=== PATIENT | female | born 1970 | race Caucasian/White ===

== ENCOUNTER 2017-12-13 14:29 | Emergency (ER) | payer BC ==
--- NOTE | 2017-12-13 14:31 | PDOC ---
History of Present Illness - General History Source: Patient Exam Limitations: No Limitations - History of Present Illness Initial Comments: 12/13/17 14:48 The patient is a 47 year old female, with a significant past medical history of asthma and cervical spine fusion, who presents to the emergency department with , 2 days of worsening asthma and shortness of breath. As per patient, yesterday she woke up with shortness of breath with associated cough, palpitations, and chest tightness. She describes her chest tightness to be midsternal radiating downwards. She reports similar episodes every few years due to her asthma. She reports taking Claritin, Spiriva, and Flovent, with minimal relief. She denies any long distance traveling. She denies taking any control pills. She denies recent fevers, chills, headache or dizziness. She denies recent nausea, vomit, diarrhea or constipation. She denies recent dysuria, frequency, urgency or hematuria. Allergies: NKA Past surgical history: None reported. Social history: Nonsmoker. Denies EtOH use and recreational drug use. Primary Care Physician: Dr. Luis Ang <Pillo Qureshi - Last Filed: 12/13/17 14:48> <Devante Espino - Last Filed: 12/13/17 14:59> - General Chief Complaint: Shortness of Breath Stated Complaint: SOB Time Seen by Provider: 12/13/17 14:31 Past History <Pillo Qureshi - Last Filed: 12/13/17 14:48> - Past Medical History Asthma: Yes - Suicide/Smoking/Psychosocial Hx Smoking Status: No Smoking History: Never smoked Have you smoked in the past 12 months: No Number of Cigarettes Smoked Daily: 0 Hx Alcohol Use: No Drug/Substance Use Hx: No Substance Use Type: None <Devante Espino - Last Filed: 12/13/17 14:59> - Past Medical History Allergies/Adverse Reactions: Allergies Allergy/AdvReac Type Severity Reaction Status Date / Time No Known Drug Allergies Allergy Verified 12/13/17 14:30 Home Medications: Ambulatory Orders Fluticasone Propionate [Flovent Diskus] 2 puff IH DAILY 12/13/17 Loratadine [Claritin] 10 mg PO DAILY 12/13/17 Prednisone [Deltasone] 20 mg PO BID #10 tablet 12/13/17 Tiotropium [place] [Spiriva] 1 inh IH DAILY 12/13/17 Review of Systems - Review of Systems Constitutional: No: Symptoms Reported, See HPI, Chills, Diaphoresis, Fever, Loss of Appetite, Malaise, Night Sweats, Weakness, Weight Stable, Unintentional Wgt. Loss, Unexplained wgt Loss, Other HEENTM: No: Symptoms Reported, See HPI, Eye Pain, Blurred Vision, Tearing, Recent change in vision, Double Vision, Cataracts, Ear Pain, Ocular Prothesis, Ear Discharge, Nose Pain, Nose Congestion, Tinnitus, Nose Bleeding, Hearing Loss , Throat Pain, Throat Swelling, Mouth Pain, Dental Problems, Difficulty Swallowing, Mouth Swelling, Other Respiratory: Yes: Cough, Shortness of Breath Cardiac (ROS): Yes: Chest Tightness ABD/GI: No: Symptoms Reported, See HPI, Abdominal Distended, Abd. Pain w/ defecation, Blood Streaked Bowels, Constipated, Diarrhea, Difficulty Swallowing , Nausea, Poor Appetite, Poor Fluid Intake, Rectal Bleeding, Vomiting, Indigestion, Abdominal cramping, Tarry Stools, Other : No: Symptoms Reported, See HPI, Burning, Dysuria, Discharge, Frequency, Flank Pain, Hematuria, Incontinence, Pain, Urgency, Testicular Mass, Testicular Swelling, Lesions, Testicular Pain, Other Musculoskeletal: No: Symptoms Reported, See HPI, Back Pain, Gout, Joint Pain, Joint Swelling, Muscle Pain, Muscle Weakness, Neck Pain, Joint Stiffness, Other Integumentary: No: Symptoms Reported, See HPI, Bruising, Change in Color, Change in Hair/Nails, Dryness, Erythema, Flushing, Lesions, Lumps, Pallor, Pruritus, Rash, Sweating, Other Neurological: No: Symptoms reported, See HPI, Headache, Numbness, Paresthesia, Pre-Existing Deficit, Seizure, Tingling, Tremors, Weakness, Unsteady Gait, Ataxia, Dizziness, Other Psychiatric: No: Anxiety, Depression, Frequent Crying, Stressors, Sleep Pattern Change, Emotional Problems, Mood Swings, Change in Appetite, Other Endocrine: No: Symptoms Reported, See HPI, Excessive Sweating, Flushing, Intolerance to Cold, Intolerance to Heat, Increased Hunger, Increased Thirst, Increased Urine, Unexplained Weight Gain, Unexplained Weight Loss, Change in Weight, Other Hematologic/Lymphatic: No: Symptoms Reported, See HPI, Anemia, Blood Clots, Easy Bleeding, Easy Bruising, Bleeding Diathesis, Lymph Node Abnormalities, Swollen Glands, Other All Other Systems: Reviewed and Negative <BaironPillo hoover - Last Filed: 12/13/17 14:48> *Physical Exam - Vital Signs Last Vital Signs Temp Pulse Resp BP Pulse Ox 98.1 F 102 H 20 143/91 100 12/13/17 14:29 12/13/17 14:29 12/13/17 14:29 12/13/17 14:29 12/13/17 14:29 - Physical Exam Comments: 12/13/17 14:50 General Appearance: Yes: Appropriately Dressed, Nourished. No: Apparent Distress, Disheveled, Mild Distress, Moderate Distress, Severe Distress, Alcohol on Breath, Intoxicated, Cachetic, Obese, Thin, Other HEENT: positive: EOMI, AMINAH, Normal ENT Inspection, Normal Voice, TMs Normal, Pharynx Normal. negative: Symmetrical, Pale Conjunctivae, Photophobia, Scleral Icterus (R), Scleral Icterus (L), Muffled/Hoarse voice, Pharyngeal Erythema, Tonsillar Exudate, Tonsillar Erythema, Nasal Congestion, Rhinorrhea, Sinus Tenderness, Orbits, Hearing Decreased, Hearing Grossly Normal, TM Bulging, TM Dull, TM Erythema, Lesions, Saha, Excessive drooling, Thrush, Other Neck: positive: Trachea midline, Normal Thyroid, Supple. negative: Tender, Rigid, Carotid bruit, Decreased range of motion, Stridor, Lymphadenopathy (R), Lymphadenopathy (L), Rigidity, Tender lateral, Tender midline, Thyromegaly, Other Respiratory/Chest: positive: Lungs Clear, Normal Breath Sounds. negative: Accessory Muscle Use, Chest Tender, Respiratory Distress, Labored Respiration, Rapid RR, Decreased Breath Sounds, Paradoxal Breathing, Crackles, Rales, Rhonchi , Stridor, Wheezing, Dullness, Hyperresonant, Plerual Rub, Other (+)Cardiovascular: positive: Tachycardia. S1, S2. negative: Edema, JVD, Murmur , Bradycardia, Diastolic Murmur, Systolic Murmur, Gallop/S3, Gallop/S4, Irregularly Irregular, Irregular, Other Vascular Pulses: Femoral (R): 4+, Femoral (L): 4+, Carotid (R): 4+, Carotid (L) : 4+, Dorsalis-Pedis (R): 4+, Doralis-Pedis (L): 4+ Gastrointestinal/Abdominal: positive: Normal Bowel Sounds, Flat, Soft. negative : Tender, Organomegaly, Pulsatile Mass, Increased Bowel Sounds, Decreased BS, Protuberent, Distended, Guarding, Rebound, Tenderness, Hernia, Mass, Hepatomegaly, Spleenomegaly, Other Lymphatic: negative: Adenopathy, Tenderness, Other Musculoskeletal: positive: Normal Inspection. negative: No calf tenderness. CVA Tenderness, CVA Tenderness (R), CVA Tenderness (L), Decreased Range of Motion, Muscle Spasm, Vertebral Tenderness, Other Extremity: positive: Normal Capillary Refill, Normal Inspection, Normal Range of Motion. negative: Tender, Pelvis Stable, Coldness, Cyanosis, Delayed Capillary Refill, Pedal Edema, Swelling, Calf Tenderness, Erythema, Inflammation , Other Integumentary: positive: Normal Color, Dry, Warm. negative: Cyanotic, Erythema , Jaundice, Mottled, Pale, Cold, Clammy, Diaphoresis, Moist, Hives, Petechiae, Rash, Swelling, Ecchymosis, Bruising, Other Neurologic: positive: terminal clerk II-XII NML intact, Fully Oriented, Alert, Normal Mood/ Affect, Normal Response, Motor Strength 5/5. negative: Abnormal Cranial NS, Respond to painful stimul, Responsive, EOM Palsy, Facial Droop, Numbness, Sensory Deficit, Finger to Nose, Confused, Disoriented, Depressed Affect, Babinski, Other <Pillo Qureshi - Last Filed: 12/13/17 14:48> Progress Note - Progress Note Progress Note: Pt will be given Prednisone and Duoneb for her asthma No sign or risk of PE Pt denies chest pain or back pain, a tightness from her asthma. Dis not take her Xopenex because it races her herat. 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 Will discharge home. Feeling better after treatment Pt is in agreement with plan <Devante Espino - Last Filed: 12/13/17 14:59> *DC/Admit/Observation/Transfer - Attestations Scribe Attestion: 12/13/17 14:52 Documentation prepared by Pillo Qureshi, acting as center medical specialist for Devante Espino MD. <Pillo Qureshi - Last Filed: 12/13/17 14:48> - Discharge Dispostion Decision to Admit order: No <Devante Espino - Last Filed: 12/13/17 14:59> Diagnosis at time of Disposition: Asthma Qualifiers: Asthma severity: mild Asthma persistence: persistent Asthma complication type: unspecified Qualified Code(s): J45.30 - Mild persistent asthma, uncomplicated - Discharge Dispostion Disposition: HOME Condition at time of disposition: Good - Prescriptions Prescriptions: Prednisone [Deltasone] 20 mg PO BID #10 tablet - Patient Instructions Printed Discharge Instructions: DI for Asthma -- Adult Additional Instructions: Continue asthma medications as directed Prednisone 20 mg 2x/day for 5 days If worsen return to ER
[2017-12-13] MEDS ORDERED: predniSONE 20 MG TABLET (UD) PO ONE (14:42)
[2017-12-13] MEDS ORDERED: ALBUTEROL SO4 2.5/IPRATROPIUM 0.5 INH SOL 3 ML VIAL.NEB. NEB ONE ×2 (14:43→14:58)
[2017-12-13 14:50] VITALS: BP 143/91; PULSE 102; TEMP 98.1; BMI 25.0
[2017-12-13] MEDS ORDERED: predniSONE 20 MG TABLET (UD) ONE (14:58)
== END 2017-12-13 15:15 | disposition home or self-care (01) ==
LOC: FER 14:29
PROC: 3E0F7GC Introduction of Other Therapeutic Substance into Respiratory Tract, Via Natural or Artificial Opening (ICD-10-PCS; principal; 2017-12-13)
DX: J45.30 Mild persistent asthma, uncomplicated (principal)
CPT/HCPCS: 99281-25; J7620

== ENCOUNTER 2022-01-02 18:15 | Emergency (ER) | payer BC, OTHER ==
[2022-01-02] MEDS ORDERED: ACETAMINOPHEN 500 MG TABLET (FP) PO ONE (18:25)
[2022-01-02 18:32] VITALS: BP 139/88; PULSE 90; TEMP 98.6; BMI 27.4
[2022-01-02] MEDS ORDERED: ACETAMINOPHEN 500 MG TABLET (FP) ONE (18:33)
== END 2022-01-02 20:18 | disposition home or self-care (01) ==
LOC: FER 18:15
DX: M54.2 Cervicalgia (principal); W01.0XXA Fall on same level from slipping, tripping and stumbling without subsequent striking against object, initial encounter
CPT/HCPCS: 70450-TC; 72125-TC; 73590-TC-LT-FY; 99285-25